=== PATIENT | male | born 1970 | race Hispanic/Latino ===

== ENCOUNTER 2020-09-07 12:24 | Emergency (ER) | payer BC, OTHER, SELFPAY ==
--- NOTE | 2020-09-07 12:46 | ER ---
Nurse's Notes [facility] Name: Kris Hoyt Age: 49 yrs Sex: Male : 1970 Arrival Date: 09/07/2020 Time: 12:25 Bed 8 Private MD: Diagnosis: Prepatellar bursitis, right knee Presentation: 09/07 12:29 Chief complaint: Patient states: "My right knee started swelling today and I have no jd3 clue why. no pain it is just huge.". Coronavirus screen: At this time, the client does not indicate any symptoms associated with coronavirus-19. Ebola Screen: Patient negative for fever greater than or equal to 101.5 degrees Fahrenheit, and additional compatible Ebola Virus Disease symptoms. Initial Sepsis Screen: Does the patient meet any 2 criteria? No. Patient's initial sepsis screen is negative. Does the patient have a suspected source of infection? No. Patient's initial sepsis screen is negative. Risk Assessment: Do you want to hurt yourself or someone else? Patient reports no desire to harm self or others. Onset of symptoms was September 07, 2020. 12:29 Method Of Arrival: Ambulatory jd3 12:29 Acuity: LIGIA 4 jd3 Historical: - Allergies: 12:31 No Known Allergies; jd3 - Home Meds: 12:31 None [Active]; jd3 - PMHx: 12:31 None; jd3 - PSHx: 12:31 left knee; jd3 - Immunization history:: Adult Immunizations up to date. - Social history:: Smoking status: Patient reports the use of cigarette tobacco products, denies chronic smoking, but will smoke occasionally. - Family history:: not pertinent. - Hospitalizations: : No recent hospitalization is reported. Screenin:35 Abuse screen: Denies threats or abuse. Denies injuries from another. Nutritional ca1 screening: No deficits noted. Tuberculosis screening: No symptoms or risk factors identified. Fall Risk None identified. Assessment: 12:35 General: Appears in no apparent distress. comfortable, Behavior is calm, cooperative, ca1 appropriate for age. Pain: Denies pain. Neuro: Level of Consciousness is awake, alert, obeys commands, Oriented to person, place, time, situation. Derm: Skin is intact, is healthy with good turgor, Skin is pink, warm \\T\\ dry. Musculoskeletal: Circulation, motion, and sensation intact. Capillary refill < 3 seconds, Range of motion: intact in all extremities, Swelling present in right knee. Vital Signs: 12:31 BP 138 / 89; Pulse 90; Resp 16 S; Temp 98.0(TE); Pulse Ox 98% on R/A; Weight 95.25 kg jd3 (R); Height 5 ft. 11 in. (180.34 cm) (R); Pain 0/10; 12:58 BP 131 / 85; Pulse 86; Resp 16 S; Pulse Ox 99% on R/A; ca1 12:31 Body Mass Index 29.29 (95.25 kg, 180.34 cm) jd3 ED Course: 12:25 Patient arrived in ED. as 12:30 Triage completed. jd3 12:32 Arm band placed on. jd3 12:33 Howard Goldman MD is Attending Physician. rn 12:34 Alyssa Parada RN is Primary Nurse. ca1 12:35 Patient has correct armband on for positive identification. Bed in low position. Call ca1 light in reach. Side rails up X 1. Pulse ox on. NIBP on. 12:45 Dick Garza MD is Referral Physician. rn 12:58 No provider procedures requiring assistance completed. Patient did not have IV access ca1 during this emergency room visit. Administered Medications: No medications were administered Outcome: 12:46 Discharge ordered by . rn 12:58 Discharged to home ambulatory. ca1 12:58 Condition: stable 12:58 Discharge instructions given to patient, Instructed on discharge instructions, follow up and referral plans. Demonstrated understanding of instructions, follow-up care. 12:59 Patient left the ED. ca1 Signatures: Donna Contreras Roman, MD MD rn Davies, Jonathon, RN RN jd3 Alyssa Parada RN RN ca1 Corrections: (The following items were deleted from the chart) 12:33 12:31 Pulse 90bpm; Resp 16bpm; Spontaneous; Pulse Ox 98% RA; Temp 98.0F Temporal; 95.25 jd3 kg Reported; Height 5 ft. 11 in. Reported; BMI: 29.2; Pain 0/10; jd3
--- NOTE | 2020-09-07 12:47 | EDPHYS ---
Physician Documentation [facility] Name: Kris Hoyt Age: 49 yrs Sex: Male : 1970 Arrival Date: 09/07/2020 Time: 12:25 Bed 8 Private MD: ED Physician Howard Goldman HPI: 09/07 12:42 This 49 yrs old Male presents to ER via Ambulatory with complaints of Knee rn Swelling. 12:42 The patient presents with swelling. The complaints affect the pre-patellar. Onset: The rn symptoms/episode began/occurred today. Modifying factors: The symptoms are alleviated by nothing. the symptoms are aggravated by nothing. Severity of symptoms: At their worst the symptoms were very mild, in the emergency department the symptoms are unchanged. The patient has not experienced similar symptoms in the past. Reports noticed swelling in front of right kneecap, no trauma, works a lot on his knees, does not hurt, no fever. . Historical: - Allergies: 12:31 No Known Allergies; jd3 - Home Meds: 12:31 None [Active]; jd3 - PMHx: 12:31 None; jd3 - PSHx: 12:31 left knee; jd3 - Immunization history:: Adult Immunizations up to date. - Social history:: Smoking status: Patient reports the use of cigarette tobacco products, denies chronic smoking, but will smoke occasionally. - Family history:: not pertinent. - Hospitalizations: : No recent hospitalization is reported. ROS: 12:42 Constitutional: Negative for fever, chills, and weight loss, MS/Extremity: + swelling rn anterior right knee Skin: Negative for injury, rash, and discoloration. Exam: 12:42 Constitutional: This is a well developed, well nourished patient who is awake, alert, rn and in no acute distress. MS/ Extremity: Pulses equal, no cyanosis. Neurovascular intact. Full, normal range of motion. Equal circumference. + 3cm mobile and non-tender, non-erythematous swelling anterior to right knee Vital Signs: 12:31 BP 138 / 89; Pulse 90; Resp 16 S; Temp 98.0(TE); Pulse Ox 98% on R/A; Weight 95.25 kg jd3 (R); Height 5 ft. 11 in. (180.34 cm) (R); Pain 0/10; 12:58 BP 131 / 85; Pulse 86; Resp 16 S; Pulse Ox 99% on R/A; ca1 12:31 Body Mass Index 29.29 (95.25 kg, 180.34 cm) jd3 MDM: 12:33 Patient medically screened. rn 12:42 Differential diagnosis: pre-patellar bursitis. Data reviewed: vital signs, nurses rn notes, and as a result, I will discharge patient. Counseling: I had a detailed discussion with the patient and/or guardian regarding: the historical points, exam findings, and any diagnostic results supporting the discharge/admit diagnosis, the need for outpatient follow up, to return to the emergency department if symptoms worsen or persist or if there are any questions or concerns that arise at home. Special discussion: I discussed with the patient/guardian in detail that at this point there is no indication for admission to the hospital. It is understood, however, that if the symptoms persist or worsen the patient needs to return immediately for re-evaluation. Administered Medications: No medications were administered Disposition: 09/07/20 12:46 Discharged to Home. Impression: Prepatellar bursitis, right knee. - Condition is Stable. - Discharge Instructions: Bursitis. - Medication Reconciliation Form, Thank You Letter, Antibiotic Education, Prescription Opioid Use form. - Follow up: Dick Garza MD; When: As needed; Reason: Recheck today's complaints, Re-evaluation by your physician. - Problem is new. - Symptoms have improved. Signatures: Howard Goldman MD MD rn Davies, Jonathon, RN RN jd3 Alyssa Parada RN RN ca1 Corrections: (The following items were deleted from the chart) 12:59 12:46 09/07/2020 12:46 Discharged to Home. Impression: Prepatellar bursitis, right ca1 knee. Condition is Stable. Forms are Medication Reconciliation Form, Thank You Letter, Antibiotic Education, Prescription Opioid Use. Follow up: Dick Garza; When: As needed; Reason: Recheck today's complaints, Re-evaluation by your physician. Problem is new. Symptoms have improved. rn
[2020-09-07 13:06] VITALS: BP 131/85; TEMP 98; O2SAT 99
== END 2020-09-07 12:59 | disposition home or self-care (01) ==
LOC: ER 12:24
DX: M70.41 Prepatellar bursitis, right knee (principal); F17.210 Nicotine dependence, cigarettes, uncomplicated
CPT/HCPCS: 99283

== ENCOUNTER 2020-11-24 10:31 | Emergency (ER) | payer BC, SELFPAY ==
[2020-11-24 11:02] LABS: Absolute Lymphocytes (CBC) 0.5 K/uL (0.7-4.9); Basophils % 0.3 % (0-1.3); Hematocrit 43.2 % (39.6-49.0); Lymphocytes % 6.2 % (15.3-44.8); MPV 9.2 fL (7.6-11.3); RBC Red Blood Cell Count 4.91 M/uL (4.33-5.43)
[2020-11-24] MEDS ORDERED: MORPHINE 4 MG/ML SYR ONE (11:16)
[2020-11-24] MEDS ORDERED: ONDANSETRON 4 MG/2 ML VIAL ONE (11:16)
--- NOTE | 2020-11-24 11:30 | RAD REPORT ---
EXAM DESCRIPTION: CTAbdomen Pelvis W Contrast - 11/24/2020 11:11 am CLINICAL HISTORY: Abdominal pain. RLQ COMPARISON: No comparisons TECHNIQUE: Biphasic CT imaging of the abdomen and pelvis was performed with 100 ml non-ionic IV cont rast. All CT scans are performed using dose optimization technique as appropriate and may include automated exposure control or mA/KV adjustment according to patient size. FINDINGS: The lung bases are clear. The liver, spleen, pancreas, adrenal glands and left kidney are within normal limits. There is mild h ydronephrosis and hydroureter on the right present. A 5 mm stone is seen in the distal right ureter. There are several right renal calculi also present largest measuring 8 mm in the superior pole right kidney. No bowel obstruction, free air, free fluid or abscess. The appendix is normal. No evidence of signi ficant lymphadenopathy. No suspicious bony findings. IMPRESSION: 5 mm stone is seen in the distal right ureter with mild right hydronephrosis and hydrour eter. Additional right nephrolithiasis is present with 8 mm stone in the superior posterior right kidney.
[2020-11-24 11:41] LABS: Blood Morphology Comment NOT SEEN (NOT SEEN); Platelet Estimate ADEQ; White Blood Cell Scan OK (OK)
[2020-11-24] MEDS ORDERED: MAGNESIUM SULFATE 1 gm IVPB 1 GM/100 ML BAG IV ONE (12:02)
[2020-11-24] MEDS ORDERED: KETOROLAC 30 MG/ML INJ ONE (12:02)
[2020-11-24] MEDS ORDERED: NA CHLORIDE 0.9% 1,000 ML ONE (12:02)
[2020-11-24] MEDS ORDERED: TAMSULOSIN 0.4 MG SR CAP ONE (12:02)
[2020-11-24 12:39] LABS: Albumin 3.4 g/dL (3.4-5.0); Bilirubin Direct 0.1 mg/dL (0-0.2); Bilirubin Total 0.4 mg/dL (0.2-1.0); Protein, Total 7.4 g/dL (6.4-8.2)
[2020-11-24 12:40] LABS: Potassium 4.3 mmol/L (3.5-5.1)
--- NOTE | 2020-11-24 12:45 | ER ---
Nurse's Notes [facility] Name: Kris Hoyt Age: 50 yrs Sex: Male : 1970 Arrival Date: 11/24/2020 Time: 10:39 Bed 5 Private MD: Diagnosis: Ureterolithiasis without hydronephrosis or obstruction Presentation: 11/24 10:48 Chief complaint: RLQ pain and vomiting since 0430 today. Coronavirus screen: At this hb time, the client does not indicate any symptoms associated with coronavirus-19. Ebola Screen: No symptoms or risks identified at this time. Initial Sepsis Screen: Does the patient meet any 2 criteria? No. Patient's initial sepsis screen is negative. Does the patient have a suspected source of infection? No. Patient's initial sepsis screen is negative. Risk Assessment: Do you want to hurt yourself or someone else? Patient reports no desire to harm self or others. Onset of symptoms was November 24, 2020. 10:48 Method Of Arrival: Ambulatory hb 10:48 Acuity: LIGIA 3 hb Triage Assessment: 10:49 General: Appears in no apparent distress. Behavior is calm, cooperative. Pain: Pain hb currently is 10 out of 10 on a pain scale. EENT: No signs and/or symptoms were reported regarding the EENT system. Neuro: Level of Consciousness is awake, alert, obeys commands, Oriented to person, place, time, situation. Cardiovascular: Patient's skin is warm and dry. Respiratory: Respiratory effort is even, unlabored, Respiratory pattern is regular, symmetrical. GI: Reports lower abdominal pain, vomiting. : No signs and/or symptoms were reported regarding the genitourinary system. Derm: Skin is pink, warm \T\ dry. Musculoskeletal: No signs and/or symptoms reported regarding the musculoskeletal system. Historical: - Allergies: 10:49 No Known Allergies; hb - PSHx: 10:49 left knee; hb - Immunization history:: Adult Immunizations up to date. - Social history:: Smoking status: Patient denies any tobacco usage or history of. - Family history:: not pertinent. - Hospitalizations: : No recent hospitalization is reported. Screenin:50 Abuse screen: Denies threats or abuse. Denies injuries from another. Nutritional hb screening: No deficits noted. Tuberculosis screening: No symptoms or risk factors identified. Fall Risk None identified. Assessment: 10:50 General: see triage assessment . hb 11:53 Reassessment: Patient appears in no apparent distress at this time. Patient and/or hb family updated on plan of care and expected duration. Pain level reassessed. Patient is alert, oriented x 3, equal unlabored respirations, skin warm/dry/pink. 12:30 Reassessment: Patient appears in no apparent distress at this time. Patient and/or hb family updated on plan of care and expected duration. Pain level reassessed. Patient is alert, oriented x 3, equal unlabored respirations, skin warm/dry/pink. Patient states symptoms have improved. Vital Signs: 10:48 BP 164 / 104; Pulse 78; Resp 16; Temp 98.3(O); Pulse Ox 95% on R/A; Weight 99.79 kg; hb Height 5 ft. 11 in. (180.34 cm); Pain 10/10; 11:53 BP 119 / 64; Pulse 72; Resp 15; Pulse Ox 99% on R/A; Pain 7/10; hb 12:30 BP 126 / 66; Pulse 70; Resp 16; Pulse Ox 99% on R/A; hb 10:48 Body Mass Index 30.68 (99.79 kg, 180.34 cm) hb ED Course: 10:39 Patient arrived in ED. mr 10:44 Howard Goldman MD is Attending Physician. rn 10:48 Sonia Suarez, SIA is Primary Nurse. hb 10:49 Triage completed. hb 10:49 Arm band placed on. hb 10:50 Patient has correct armband on for positive identification. Bed in low position. Call light in reach. 10:50 Initial lab(s) drawn, by ne, sent to lab. Inserted saline lock: 22 gauge in right kj1 antecubital area, using aseptic technique. Blood collected. 11:11 CT Abd/Pelvis - IV Contrast Only In Process Unspecified. EDMS 12:28 Hepatic Function Sent. sv 12:28 Basic Metabolic Panel Sent. sv 12:53 No provider procedures requiring assistance completed. IV discontinued, intact, hb bleeding controlled, No redness/swelling at site. Administered Medications: 11:03 Drug: Zofran (Ondansetron) 4 mg Route: IVP; Site: right antecubital; hb 11:41 Follow up: Response: No adverse reaction hb 11:03 Drug: morphine 4 mg Route: IVP; Site: right antecubital; hb 11:41 Follow up: Response: No adverse reaction hb 11:52 Drug: TORadol 30 mg Route: IVP; Site: right antecubital; hb 12:35 Follow up: Response: No adverse reaction hb 11:53 Drug: Magnesium Sulfate 1 grams Route: IVPB; Infused Over: 1 hrs; Site: right hb antecubital; 12:55 Follow up: IV Status: Completed infusion; IV Intake: 100ml hb 12:55 Follow up: Response: No adverse reaction hb 11:53 Drug: Flomax 0.4 mg Route: PO; hb 12:47 Follow up: Response: No adverse reaction hb 12:55 Follow up: Response: No adverse reaction hb 11:53 Drug: NS 0.9% 500 ml Route: IV; Rate: bolus; Site: right antecubital; hb 12:30 Follow up: IV Status: Completed infusion; IV Intake: 500ml hb 12:55 Follow up: Response: No adverse reaction hb Intake: 12:30 IV: 500ml; Total: 500ml. hb 12:55 IV: 100ml; Total: 600ml. hb Outcome: 12:44 Discharge ordered by . rn 12:53 Discharged to home ambulatory. hb 12:53 Condition: stable 12:53 Discharge instructions given to patient, Instructed on discharge instructions, follow up and referral plans. medication usage, Demonstrated understanding of instructions, follow-up care, medications, Prescriptions given X 3. 12:55 Patient left the ED. hb Signatures: Dispatcher [employer] Haydee Gracia RN RN sv Rivera, Mary mr Nieto, Roman, MD MD rn Baxter, Heather, RN RN hb Jackson, Kandis kj1
--- NOTE | 2020-11-24 12:46 | EDPHYS ---
Physician Documentation [facility] Name: Kris Hoyt Age: 50 yrs Sex: Male : 1970 Arrival Date: 11/24/2020 Time: 10:39 Bed 5 Private MD: ED Physician Howard Goldman HPI: 11/24 10:49 This 50 yrs old Male presents to ER via Ambulatory with complaints of rn Abdominal Pain, Vomiting. 10:49 The patient presents to the emergency department with nausea, vomiting, abdominal pain, rn of the right lower quadrant, described as achy, and does not radiate. Onset: The symptoms/episode began/occurred this morning. Possible causes: unknown. The symptoms are aggravated by nothing. The symptoms are alleviated by nothing. Associated signs and symptoms: Pertinent positives: abdominal pain, nausea, vomiting, Pertinent negatives: fever, GI bleeding. Severity of symptoms: At their worst the symptoms were moderate in the emergency department the symptoms are unchanged. The patient has not experienced similar symptoms in the past. The patient has not recently seen a physician. Historical: - Allergies: 10:49 No Known Allergies; hb - PSHx: 10:49 left knee; hb - Immunization history:: Adult Immunizations up to date. - Social history:: Smoking status: Patient denies any tobacco usage or history of. - Family history:: not pertinent. - Hospitalizations: : No recent hospitalization is reported. ROS: 10:49 Constitutional: Negative for fever, chills, and weight loss, Eyes: Negative for injury, rn pain, redness, and discharge, Neck: Negative for injury, pain, and swelling, Cardiovascular: Negative for chest pain, palpitations, and edema, Respiratory: Negative for shortness of breath, cough, wheezing, and pleuritic chest pain, Abdomen/GI: + RLQ abd pain and nausea/vomiting that began this morning Back: Negative for injury and pain, : Negative for injury, bleeding, discharge, and swelling, MS/Extremity: Negative for injury and deformity, Skin: Negative for injury, rash, and discoloration, Neuro: Negative for headache, weakness, numbness, tingling, and seizure. Exam: 10:49 Constitutional: This is a well developed, well nourished patient who is awake, alert, rn and in no acute distress. Head/Face: Normocephalic, atraumatic. Eyes: Periorbital areas with no swelling, redness, or edema. Cardiovascular: Regular rate and rhythm. No pulse deficits. Respiratory: No increased work of breathing, no retractions or nasal flaring. Abdomen/GI: Soft, + RLQ tenderness, no rebound Skin: Warm, dry MS/ Extremity: Pulses equal, no cyanosis. Neuro: Awake and alert, GCS 15 Vital Signs: 10:48 BP 164 / 104; Pulse 78; Resp 16; Temp 98.3(O); Pulse Ox 95% on R/A; Weight 99.79 kg; hb Height 5 ft. 11 in. (180.34 cm); Pain 10/10; 11:53 BP 119 / 64; Pulse 72; Resp 15; Pulse Ox 99% on R/A; Pain 7/10; hb 12:30 BP 126 / 66; Pulse 70; Resp 16; Pulse Ox 99% on R/A; hb 10:48 Body Mass Index 30.68 (99.79 kg, 180.34 cm) hb MDM: 10:44 Patient medically screened. rn 12:42 Differential diagnosis: Nonspecific abd pain, appendicitis, diverticulitis, viral rn gastroenteritis, gastroenteritis, ureterolithiasis. Data reviewed: vital signs, nurses notes, lab test result(s), radiologic studies, CT scan, and as a result, I will discharge patient. Counseling: I had a detailed discussion with the patient and/or guardian regarding: the historical points, exam findings, and any diagnostic results supporting the discharge/admit diagnosis, lab results, radiology results, the need for outpatient follow up, to return to the emergency department if symptoms worsen or persist or if there are any questions or concerns that arise at home. Response to treatment: the patient's symptoms have markedly improved after treatment, and as a result, I will discharge patient. Special discussion: Based on the patient's Hx, exam, and Dx evaluation, there is no indication for emergent surgery or inpatient Tx. It is understood by the patient/guardian that if the Sx's persist or worsen they need to return immediately for re-evaluation. I discussed with the patient/guardian in detail that at this point there is no indication for admission to the hospital. It is understood, however, that if the symptoms persist or worsen the patient needs to return immediately for re-evaluation. ED course: Pt pain resolved after treatment, anticipate passage of stone today, will dc home with prn medication, notified of another large stone in kidney, and will f/u with urology as needed. . 11/24 10:48 Order name: Basic Metabolic Panel rn 11/24 10:48 Order name: CBC with Diff; Complete Time: 12:22 rn 11/24 10:48 Order name: Hepatic Function rn 11/24 10:48 Order name: Lipase rn 11/24 10:48 Order name: Basic Metabolic Panel [facility] 11/24 10:49 Order name: Liver (Hepatic) Function [facility] 11/24 10:48 Order name: CT Abd/Pelvis - IV Contrast Only; Complete Time: 11:39 rn 11/24 11:06 Order name: CBC Smear Scan; Complete Time: 12:22 ED[facility] 11/24 10:48 Order name: IV Saline Lock; Complete Time: 10:56 rn 11/24 10:48 Order name: Labs collected and sent; Complete Time: 10:56 rn 11/24 11:25 Order name: Labs - recollect needed: hemolyzed/ recollect chemistries; Complete Time: eb 11:40 Administered Medications: 11:03 Drug: Zofran (Ondansetron) 4 mg Route: IVP; Site: right antecubital; hb 11:41 Follow up: Response: No adverse reaction hb 11:03 Drug: morphine 4 mg Route: IVP; Site: right antecubital; hb 11:41 Follow up: Response: No adverse reaction hb 11:52 Drug: TORadol 30 mg Route: IVP; Site: right antecubital; hb 12:35 Follow up: Response: No adverse reaction hb 11:53 Drug: Magnesium Sulfate 1 grams Route: IVPB; Infused Over: 1 hrs; Site: right hb antecubital; 12:55 Follow up: IV Status: Completed infusion; IV Intake: 100ml hb 12:55 Follow up: Response: No adverse reaction hb 11:53 Drug: Flomax 0.4 mg Route: PO; hb 12:47 Follow up: Response: No adverse reaction hb 12:55 Follow up: Response: No adverse reaction hb 11:53 Drug: NS 0.9% 500 ml Route: IV; Rate: bolus; Site: right antecubital; hb 12:30 Follow up: IV Status: Completed infusion; IV Intake: 500ml hb 12:55 Follow up: Response: No adverse reaction hb Disposition: 11/24/20 12:44 Discharged to Home. Impression: Ureterolithiasis without hydronephrosis or obstruction. - Condition is Stable. - Discharge Instructions: Abdominal Pain, Adult, Kidney Stones, Dietary Guidelines to Help Prevent Kidney Stones. - Prescriptions for Zofran ODT 4 mg Oral tablet,disintegrating - place 1 tablet by TRANSLINGUAL route every 8 hours; 20 tablet. Tylenol- Codeine #3 300-30 mg Oral Tablet - take 1 tablet by ORAL route every 4-6 hours As needed; 15 tablet. Flomax 0.4 mg Oral Capsule, Sust. Release 24 hr - take 1 capsule by ORAL route once daily Stop taking once you feel you have passed the kidney stone, can make you feel lightheaded and dizzy; 10 capsule. - Medication Reconciliation Form, Thank You Letter, Antibiotic Education, Prescription Opioid Use form. - Follow up: Private Physician; When: As needed; Reason: Recheck today's complaints, Re-evaluation by your physician. - Problem is new. - Symptoms have improved. Signatures: Dispatcher [employer] EDHoward Trujillo MD MD rn Baxter, Heather, RN RN [place] Brar Corrections: (The following items were deleted from the chart) 12:45 12:44 11/24/2020 12:44 Discharged to Home. Impression: Ureterlithiasis without rn hydronephrosis or obstruction. Condition is Stable. Forms are Medication Reconciliation Form, Thank You Letter, Antibiotic Education, Prescription Opioid Use. Follow up: Private Physician; When: As needed; Reason: Recheck today's complaints, Re-evaluation by your physician. Problem is new. Symptoms have improved. rn 12:55 12:45 11/24/2020 12:44 Discharged to Home. Impression: Ureterolithiasis without hydronephrosis or obstruction. Condition is Stable. Forms are Medication Reconciliation Form, Thank You Letter, Antibiotic Education, Prescription Opioid Use. Follow up: Private Physician; When: As needed; Reason: Recheck today's complaints, Re-evaluation by your physician. Problem is new. Symptoms have improved. rn
[2020-11-24 13:04] VITALS: TEMP 98.3
[2020-11-24 13:05] VITALS: O2SAT 99
[2020-11-24 13:07] VITALS: BP 126/66
== END 2020-11-24 12:55 | disposition home or self-care (01) ==
LOC: ER 10:31
DX: N20.1 Calculus of ureter (principal)
CPT/HCPCS: 36415; 74177; 80048; 80076; 82565; 83690; 85025; 96365; 96375; 99284; J2405; J3475; J7030; Q9967